=== PATIENT | male | born 1945 | race Caucasian/White ===

== ENCOUNTER → 2016-08-08 | Outpatient (CLI) | payer MEDICARE ==
--- NOTE | 2016-08-08 17:01 | RADIOLOGY REPORT (SQ) ---
EXAM DESCRIPTION: LUMBAR SPINE COMPLETE COMPLETED DATE/TIME: 08/08/2016 3:58 pm REASON FOR STUDY: DORSALGIA, UNSPECIFIED M54.9 DORSALGIA, UNSPECIFIED COMPARISON: None. NUMBER OF VIEWS: Five views including obliques. TECHNIQUE: AP, lateral, oblique, and sacral radiographic images acquired of the lumbar spine. LIMITATIONS: None. FINDINGS: MINERALIZATION: Normal. SEGMENTATION: Normal. No transitional anatomy. ALIGNMENT: There is grade 1 anterolisthesis of L5 on S1. A large bridging osteophyte is present ante riorly. VERTEBRAE: Maintained height. No fracture or worrisome bone lesion. DISCS: The L5-S1 disc space is narrowed. POSTERIOR ELEMENTS: Pars defects are present at L5. Hypertrophic facet changes are present at L4-5 a nd L5-S1. HARDWARE: None in the spine. PARASPINAL SOFT TISSUES: Normal. PELVIS: Intact as visualized. No fractures or worrisome bone lesions. SI joints intact. OTHER: No other significant finding. IMPRESSION: 1. Spondylolisthesis and spondylolysis of L5 on S1. 2. Degenerative disc changes, spondylosis, and facet arthropathy as described. TECHNICAL DOCUMENTATION: JOB ID: [id number] [employer]- All Rights Reserved
--- NOTE | 2016-08-08 17:09 | RADIOLOGY REPORT (SQ) ---
EXAM DESCRIPTION: PELVIS AP COMPLETED DATE/TIME: 08/08/2016 3:58 pm REASON FOR STUDY: DORSALGIA, UNSPECIFIED M54.9 DORSALGIA, UNSPECIFIED COMPARISON: None. NUMBER OF VIEWS: One view TECHNIQUE: AP Pelvis LIMITATIONS: None. FINDINGS: MINERALIZATION: Osteopenic HIPS: No acute fracture or dislocation. No worrisome bone lesions. PELVIS AND SACRUM: No acute fracture or dislocation. No worrisome bone lesions. PUBIS AND ISCHIUM: No acute fracture. LOWER LUMBAR SPINE: Posterior element sclerosis at L5-S1. Bilateral spondylolysis at L5 on today's l umbar spine films. SOFT TISSUES: No findings. OTHER: No other significant finding. IMPRESSION: NEGATIVE STUDY OF THE PELVIS. TECHNICAL DOCUMENTATION: JOB ID: [id number] [employer]- All Rights Reserved
== END ==
LOC: OD 15:17
PROVIDERS: ATTEND Internal Medicine Medical Oncology
DX: M54.9 Dorsalgia, unspecified (principal)
CPT/HCPCS: 72110; 72170

== ENCOUNTER 2017-01-16 13:24 | Inpatient (IN) | payer MEDICARE ==
--- NOTE | 2017-01-16 13:46 | ER Document Report ---
ED Medical Screen (RME) - General Chief Complaint: Slurred Speech Stated Complaint: SLURRED SPEECH Time Seen by Provider: 01/16/17 13:43 Notes: Patient states that yesterday became upset with the grandchildren and he began having trouble speaking. This continued till today. Patient went size primary care provider today who referred him to the emergency department. Patient is obviously still having trouble making sentences in triage. Patient has had 3 previous stroke. He has a heart mechanical valve. TRAVEL OUTSIDE OF THE [place] IN LAST 30 DAYS: No - Related Data Allergies/Adverse Reactions: Penicillins Allergy (Verified 01/16/17 13:25) Past Medical History - Social History Frequency of alcohol use: None Drug Abuse: None Renal/ Medical History: Denies: Hx Peritoneal Dialysis Physical Exam - Vital signs Vitals: Temp Pulse Resp BP Pulse Ox 97.9 F 68 17 139/69 H 99 01/16/17 13:31 01/16/17 13:31 01/16/17 13:31 01/16/17 13:31 01/16/17 13:31 Course - Vital Signs Vital signs: Temp Pulse Resp BP Pulse Ox 97.9 F 68 17 139/69 H 99 01/16/17 13:31 01/16/17 13:31 01/16/17 13:31 01/16/17 13:31 01/16/17 13:31
--- NOTE | 2017-01-16 14:12 | ER Document Report ---
ED General - General Chief Complaint: Slurred Speech Stated Complaint: SLURRED SPEECH Time Seen by Provider: 01/16/17 13:43 Information source: Patient, Transfer Record, [facility] Records TRAVEL OUTSIDE OF THE [place] IN LAST 30 DAYS: No - HPI Patient complains to provider of: "I think I am having a TIA". "I can't find my words" Onset: Yesterday - at noon. Has improved. Onset/Duration: Gradual Quality of pain: No pain Associated symptoms: None Exacerbated by: Denies Relieved by: Denies Similar symptoms previously: Yes Recently seen / treated by doctor: No - Related Data Allergies/Adverse Reactions: Penicillins Allergy (Verified 01/16/17 13:25) Past Medical History - General Information source: Patient - Social History Smoking Status: Current Every Day Smoker Cigarette use (# per day): Yes Chew tobacco use (# tins/day): Yes Smoking Education Provided: Yes Frequency of alcohol use: None Drug Abuse: None Lives with: Family Family History: Hypertension Patient has suicidal ideation: No Patient has homicidal ideation: No - Past Medical History Cardiac Medical History: Reports: Hx Coronary Artery Disease EENT Medical History: Reports: None Neurological Medical History: Reports: Hx Cerebrovascular Accident Endocrine Medical History: Reports: Hx Diabetes Mellitus Type 2 Renal/ Medical History: Reports: None. Denies: Hx Peritoneal Dialysis Malignancy Medical History: Reports None GI Medical History: Reports: None Musculoskeltal Medical History: Reports None Skin Medical History: Reports None Psychiatric Medical History: Reports: None Traumatic Medical History: Reports: None Past Surgical History: Reports: Hx Coronary Artery Bypass Graft Review of Systems - Review of Systems Constitutional: No symptoms reported EENT: No symptoms reported Cardiovascular: No symptoms reported Respiratory: No symptoms reported Gastrointestinal: No symptoms reported Genitourinary: No symptoms reported Musculoskeletal: No symptoms reported Skin: No symptoms reported Hematologic/Lymphatic: No symptoms reported Neurological/Psychological: See HPI Physical Exam - Vital signs Vitals: Temp Pulse Resp BP Pulse Ox 97.9 F 68 17 139/69 H 99 01/16/17 13:31 01/16/17 13:31 01/16/17 13:31 01/16/17 13:31 01/16/17 13:31 Interpretation: Normal - Notes Notes: PHYSICAL EXAMINATION: GENERAL: Well-appearing, well-nourished and in no acute distress. HEAD: Atraumatic, normocephalic. EYES: Pupils equal round and reactive to light, extraocular movements intact, sclera anicteric, conjunctiva are normal. ENT: Nares patent, oropharynx clear without exudates. Moist mucous membranes. NECK: Normal range of motion, supple without lymphadenopathy LUNGS: Breath sounds clear to auscultation bilaterally and equal. No wheezes rales or rhonchi. HEART: Regular rate and rhythm without murmurs ABDOMEN: Soft, nontender, nondistended abdomen. No guarding, no rebound. No masses appreciated. Musculoskeletal: Normal range of motion, no pitting or edema. No cyanosis. NEUROLOGICAL: Cranial nerves grossly intact. Patient has slow speech, without slurring. Normal sensory, motor exams PSYCH: Normal mood, normal affect. SKIN: Warm, Dry, normal turgor, no rashes or lesions noted. Course - Re-evaluation Re-evalutation: 01/16/17 16:22 Reevaluated the patient 3 times while in the emergency department. His symptoms have remained mild and stable. I did talk to the patient's family including his daughter who he lives with. She states that the patient's INR has been difficult to keep therapeutic. She states that the doctors keep adjusting it. Currently the patient is on 5 mg 5 days weekly and then 2-1/2 mg the other 2 days. Patient's last INR was done 1 month ago. In light of the fact that the patient has a [place] Conor valve, multiple CVAs, current TIA symptoms and a subtherapeutic INR I think admission would be in the patient's best interest. I did call Dr. Kellogg and I was instructed to call Dr. Parry which I did he accepted admission. She will be given Lovenox 1 mg/kg as well as 5 mg Coumadin. 01/16/17 16:30 Patient also states he has a history of atrial fibrillation. I did inform him and his family of the admission. He agreed. Dr. Haynes is in the room talking to the family and the patient now - Vital Signs Vital signs: Temp Pulse Resp BP Pulse Ox 97.9 F 68 16 119/72 96 01/16/17 13:31 01/16/17 13:48 01/16/17 14:31 01/16/17 14:31 01/16/17 14:31 - Laboratory Result Diagrams: 01/16/17 14:20 01/16/17 14:20 Laboratory results interpreted by me: 01/16/17 01/16/17 01/16/17 14:20 14:20 14:20 RBC 3.73 L Hgb 11.9 L Hct 35.4 L RDW 17.9 H Plt Count 144 L Eosinophils % 10.6 H PT 22.0 H APTT 38.7 H Chloride 108 H - Diagnostic Test Radiology reviewed: Image reviewed - See the head without contrast shows no acute CVA, Reports reviewed - EKG Interpretation by Me EKG shows normal: Sinus rhythm Rate: Normal [place]/QRS: RBBB Discharge - Discharge Condition: Good Disposition: ADMITTED INPATIENT Admitting Provider: Hospitalist - Dr. Haynes Unit Admitted: Telemetry Referrals: PERLA MARTINEZ PA-C [Primary Care Provider] - Follow up as needed
--- NOTE | 2017-01-16 14:13 | ER Document Report ---
ED NIH Stroke Scale - NIH Stroke Scale When completed:: Before Alteplase *: 1. NIH scale should be completed with appropriate accompanying assessment tools. *: 2. The NIH should reflect what the patient is capable of doing and should not be coached by the clinician. 1a. Level of Consciousness: 0=Alert;keenly responsive -: 1=Drowsy -: 2=Obtunded -: 3=Coma/unresponsive or reflex to noxious stimuli. 1a. Responses: 0 1b. Orientation Questions: a. What month is it? -: b. How old are you? -: 0=Answers both questions correctly. -: 1=Answers one question correctly or patient is intubated or has orotracheal trauma. -: 2=Answers neither question correctly. 1b. Responses: 0 1c. Response to commands: a. Open and close eyes? -: b. Extension Division Director and release hand? -: Credit is given despite weakness. Demonstration of task is permitted. Substitute command if hands cannot be used. -: 0=Performs both tasks correctly -: 1=Performs one task correctly -: 2=Performs neither task correctly 1c. Responses: 0 2. Gaze: Establish eye contact and instruct patient to "Follow my finger" -: 0=Normal -: 1=Partial gaze palsy. Gaze is abnormal in one or both eyes, but where forced deviation or total gaze paresis is not present. -: 2=Forced deviation or total gaze paresis. 2. Responses: 0 3. Visual Wolfe: Sees fingers in all four quadrants. -: 0=No visual loss. -: 1=Partial hemianopsia. -: 2=Complete hemianopsia. -: 3=Bilateral hemianopsia (including Cortical blindness) 3. Responses: 0 4. Facial Movement: Instruct patient to: -: a. Show me your teeth -: b. Raise your eyebrows -: c. Close your eyes -: d. Smile -: 0=Normal symmetrical movement -: 1=Minor paralysis (flattened nasolabial fold, asymmetry on smiling). -: 2=Partial paralysis (total or near total paralysis of lower face). -: 3=Complete paralysis of upper and lower face 4. Responses: 0 5. Motor functions (left arm): Alternate sides and extend each arm with palms down (90 degrees if sitting or 45 degrees for supine). -: 0=No drift;limb holds for full 10 seconds. -: 1=Drift; limb holds but drifts down before full 10 seconds, but does not hit bed. -: 2=Some effort against gravity; limb cannot get to or maintain position. -: 3=No effort against gravity; limb falls. -: 4=No movement. -: UN=Amputation, joint fusion, explain in comments. 5. Responses (left arm): 0 5. Motor Functions (right arm): Alternate sides and extend each arm with palms down (90 degrees if sitting or 45 degrees for supine). -: 0=No drift;limb holds for full 10 seconds. -: 1=Drift; limb holds but drifts down before full 10 seconds, but does not hit bed. -: 2=Some effort against gravity; limb cannot get to or maintain position. -: 3=No effort against gravity; limb falls. -: 4=No movement. -: UN=Amputation, joint fusion, explain in comments. 5. Responses (right arm): 0 6. Motor Functions (left leg): With patient lying supine, alternate sides and extend each leg (30 degrees always while supine). -: 0=No drift, leg holds position for full 5 seconds -: 1=Drift; leg falls before full 5 seconds but does not hit bed. -: 2=Some effort against gravity, leg falls to bed but some effort against gravity. -: 3=No effort against gravity, leg falls to bed immediately. -: 4=No movement. -: UN=Amputation, joint fusion; explain in comments. 6. Responses (left leg): 0 6. Motor Functions (right leg): With patient lying supine, alternate sides and extend each leg (30 degrees always while supine). -: 0=No drift, leg holds position for full 5 seconds -: 1=Drift; leg falls before full 5 seconds but does not hit bed. -: 2=Some effort against gravity, leg falls to bed but some effort against gravity. -: 3=No effort against gravity, leg falls to bed immediately. -: 4=No movement. -: UN=Amputation, joint fusion; explain in comments. 6. Responses (right leg): 0 7. Limb Ataxia: With eyes open instruct patient to: -: a. "Touch your finger to your nose". -: b. "Touch your heel to your gonzalez" -: 0=Absent -: 1=Present in one limb. -: 2=Present in two limbs. -: UN=Amputation or joint fusion; explain in comments. 7. Responses: 0 8. Sensory: Test sensation using pinprick or noxious stimuli. Test as many body parts as possible. -: 0=Normal;no sensory loss -: 1=Mile to moderate sensory loss (patient feels pin prick but is less sharp on affected side). -: 2=Severe or total sensory loss. 8. Responses: 0 9. Best Language: Instruct patient to: -: a. "Describe what you see in this picture." -: b. "Name the items in this picture." -: c. "Read these sentences." -: 0=No aphasia, normal -: 1=Mild to moderate aphasia. -: 2=Severe aphasia -: 3=Mute, global aphasia, no usable speech or auditory comprehension. 9. Responses: 0 10. Articulation, Dysarthia: Instruct patient to: -: "Read these words" or "Repeat these words" -: 0=Normal -: 1=Mild to moderate; patient may slur some words but can be understood without difficulty. -: 2=Severe; patients speech so slurred as to be unintelligible in the absence of dysphasia. -: UN=Intubated or other physical barrier, explain in comments. 10. Responses: 0 11. Extinction or inattention: 0=No abnormality -: 1= Visual, tactile, auditory, spatial, or personal inattention or extinction to bilateral simulation in one or the sensory modalities. -: 2=Profound jack-inattention or jack-inattention to more than one modality; does not recognize own hand. 11. Responses: 0 Total Score: 0 Notes: Patient states that he was having difficulty getting the right words to come out. During my examination he had slowed speech but the correct words were stated. He even stated "see down doing much better". 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
--- NOTE | 2017-01-16 14:17 | RADIOLOGY REPORT (SQ) ---
EXAM DESCRIPTION: CHEST SINGLE VIEW COMPLETED DATE/TIME: 01/16/2017 1:53 pm REASON FOR STUDY: trouble speaking COMPARISON: None. NUMBER OF VIEWS: One view. TECHNIQUE: Single frontal radiographic view of the chest acquired. LIMITATIONS: None. FINDINGS: LUNGS AND PLEURA: No opacities, masses or pneumothorax. No pleural effusion. MEDIASTINUM AND HILAR STRUCTURES: No masses. Contour normal. HEART AND VASCULAR STRUCTURES: Heart enlarged without failure. Normal vasculature. BONES: No acute findings. HARDWARE: CABG. OTHER: No other significant finding. IMPRESSION: Cardiomegaly. No acute findings. TECHNICAL DOCUMENTATION: JOB ID: [id number] [employer]- All Rights Reserved
--- NOTE | 2017-01-16 14:22 | RADIOLOGY REPORT (SQ) ---
EXAM DESCRIPTION: CT HEAD WITHOUT COMPLETED DATE/TIME: 01/16/2017 2:10 pm REASON FOR STUDY: trouble speaking COMPARISON: None. TECHNIQUE: Axial images acquired through the brain without intravenous contrast. Images reviewed wi th bone, brain and subdural windows. Images stored on PACS. All CT scanners at this facility use dose modulation, iterative reconstruction, and/or weight based d osing when appropriate to reduce radiation dose to as low as reasonably achievable (ALARA). [facility]: Dose Right [facility]: CareDose [facility]: Dose Right [facility]: Teradose 4D [facility]: Smart SecureDB RADIATION DOSE: mGy. LIMITATIONS: None. FINDINGS: VENTRICLES: Prominent. CEREBRUM: No masses. No hemorrhage. No midline shift. Old watershed infarct left MCA territory. A reas of low density in the white matter most likely due to chronic micro-vascular ischemic change. N o evidence for acute infarction. CEREBELLUM: No masses. No hemorrhage. No alteration of density. No evidence for acute infarction. EXTRAAXIAL SPACES: Age-related involutional change. No fluid collections. No masses. ORBITS AND GLOBE: No intra- or extraconal masses. Normal contour of globe without masses. CALVARIUM: No fracture. PARANASAL SINUSES: No fluid or mucosal thickening. SOFT TISSUES: No mass or hematoma. OTHER: No other significant finding. IMPRESSION: Chronic ischemic changes. EVIDENCE OF ACUTE STROKE: NO. TECHNICAL DOCUMENTATION: JOB ID: [id number] Quality ID # [id number]: Final reports with documentation of one or more dose reduction techniques (e.g., Au tomated exposure control, adjustment of the mA and/or kV according to patient size, use of iterative reconstruction technique) 2010 [employer]- All Rights Reserved
[2017-01-16 14:43] LABS: ABSOLUTE BASOPHILS # (AUTO) 0.1 10^3/uL (0.0-0.2); ABSOLUTE EOSINOPHILS # (AUTO) 0.6 10^3/uL (0.0-0.6); ABSOLUTE LYMPHOCYTES (AUTO) 1.6 10^3/uL (0.5-4.7); ABSOLUTE MONOCYTES (AUTO) 0.5 10^3/uL (0.1-1.4); ABSOLUTE NEUT (AUTO) 3.3 10^3/uL (1.7-8.2); BASOPHILS % (AUTO) 1.1 % (0-2); EOSINOPHILS % (AUTO) 10.6 % (0-6); HEMATOCRIT 35.4 % (37.9-51.0); HEMOGLOBIN 11.9 g/dL (13.5-17.0); HGB HCT DIFFERENCE 0.3; LYMPHOCYTES % (AUTO) 26.2 % (13-45); MEAN CORPUSCULAR HGB CONC 33.7 g/dL (32.0-36.0); MEAN CORPUSCULAR VOLUME 95 fl (80-97); MONOCYTES % (AUTO) 7.9 % (3-13); PARTIAL THROMBOPLASTIN TIME 38.7 SEC (23.5-35.8); RED BLOOD COUNT 3.73 10^6/uL (4.35-5.55); RED CELL DISTRIBUTION WIDTH 17.9 % (11.5-14.0); SEGMENTED NEUTROPHILS % (AUTO) 54.2 % (42-78)
[2017-01-16 15:04] LABS: ALANINE AMINOTRANSFERASE 34 U/L (21-72); ALBUMIN 3.8 g/dL (3.5-5.0); ALKALINE PHOSPHATASE 105 U/L (38-126); ANION GAP 7 (5-19); ASPARTATE AMINO TRANSFERASE 25 U/L (17-59); BILIRUBIN,DIRECT 0.3 mg/dL (0.0-0.4); BILIRUBIN,TOTAL 0.4 mg/dL (0.2-1.3); BLOOD UREA NITROGEN 19 mg/dL (7-20); CALCIUM 9.1 mg/dL (8.4-10.2); CARBON DIOXIDE 29 mmol/L (22-30); CHLORIDE 108 mmol/L (98-107); CREATININE RESULT 1.02 mg/dL (0.52-1.25); GLUCOSE 100 mg/dL (75-110); POTASSIUM 4.4 mmol/L (3.6-5.0); SODIUM 144.4 mmol/L (137-145); TOTAL PROTEIN 6.7 g/dL (6.3-8.2)
[2017-01-16] MEDS ORDERED: WARFARIN SODIUM 5 MG TABLET PO STA (16:17)
[2017-01-16] MEDS ORDERED: ENOXAPARIN SODIUM INJ 100 MG/1 ML DISP.SYRIN SUBCUT ONE (16:18)
[2017-01-16] MEDS ORDERED: RINGERS SOLUTION,LACTATED 1,000 ML IV PRN (16:57)
[2017-01-16] MEDS ORDERED: ONDANSETRON HCL INJ/PF 4 MG/2 ML SDV IV PRN (16:57)
--- NOTE | 2017-01-16 17:37 | PDOC H&P ---
History of Present Illness Admission Date/PCP: 01/26/2017 PERLA MARTINEZ PA-C Patient complains of: Difficulty Speaking History of Present Illness: MIKA NGUYEN is a 71 year old male presents with compliant of difficulty speaking. Pt and family states that symptom of difficulty speaking started yesterday. Family states that symptoms appeared to improve. Daughter states that today his speech worsened and pt was directed to the ER. Pt was very agitated about being admitted. Pt states that today he feels a little weak. Pt states that normally he feels very strong. ER reported that pt INR 1.[address] of head negative. Pt has a [place] Conor valve and Atrial Fibrillation. Past Medical History Cardiac Medical History: Reports: Coronary Artery Disease, Hyperlipidema, Hypertension EENT Medical History: Reports: None Endocrine Medical History: Reports: Diabetes Mellitus Type 2 Renal/ Medical History: Reports: None Malignancy Medical History: Reports: None GI Medical History: Reports: None Musculoskeltal Medical History: Reports: None Skin Medical History: Reports: None Psychiatric Medical History: Reports: None Traumatic Medical History: Reports: None Past Surgical History Past Surgical History: Reports: Appendectomy, Cholecystectomy, Coronary Artery Bypass Graft Social History Lives with: Family Smoking Status: Current Every Day Smoker Family History Family History: Hypertension Parental Family History Reviewed: Yes Children Family History Reviewed: Yes Sibling(s) Family History Reviewed.: Yes Medication/Allergy Allergies/Adverse Reactions: Penicillins Allergy (Verified 01/16/17 13:25) Review of Systems Constitutional: PRESENT: weakness. ABSENT: chills, fever(s), headache(s), weight gain, weight loss Eyes: ABSENT: visual disturbances Ears: ABSENT: hearing changes Cardiovascular: ABSENT: chest pain, dyspnea on exertion, edema, orthropnea, palpitations Respiratory: ABSENT: cough, hemoptysis Gastrointestinal: ABSENT: abdominal pain, constipation, diarrhea, hematemesis, hematochezia, nausea, vomiting Genitourinary: ABSENT: dysuria, hematuria Musculoskeletal: ABSENT: joint swelling Integumentary: ABSENT: rash, wounds Neurological: PRESENT: abnormal speech, weakness Psychiatric: PRESENT: anxiety Endocrine: ABSENT: cold intolerance, heat intolerance, polydipsia, polyuria Hematologic/Lymphatic: ABSENT: easy bleeding, easy bruising Physical Exam Vital Signs: Temp Pulse Resp BP Pulse Ox 97.9 F 68 19 150/95 H 99 01/16/17 13:31 12/04/17 13:48 01/16/17 16:31 01/16/17 16:31 01/16/17 16:31 Intake & Output 01/15/17 01/16/17 01/17/17 06:59 06:59 06:59 Weight 92.3 kg General appearance: PRESENT: no acute distress, morbidly obese, well-developed, well-nourished Head exam: PRESENT: atraumatic, normocephalic Eye exam: PRESENT: conjunctiva pink, EOMI, PERRLA. ABSENT: scleral icterus Ear exam: PRESENT: normal external ear exam Mouth exam: PRESENT: moist, other - Tongue slightly deviated to right Neck exam: ABSENT: carotid bruit, JVD, lymphadenopathy, thyromegaly Respiratory exam: PRESENT: clear to auscultation irineo. ABSENT: rales, rhonchi, wheezes Cardiovascular exam: PRESENT: irregular rhythm, other - mechanical click Pulses: PRESENT: normal dorsalis pedis pul Vascular exam: PRESENT: normal capillary refill GI/Abdominal exam: PRESENT: normal bowel sounds, soft. ABSENT: distended, guarding, mass, organolmegaly, rebound, tenderness Rectal exam: PRESENT: deferred Extremities exam: PRESENT: full ROM. ABSENT: calf tenderness, clubbing, pedal edema Musculoskeletal exam: PRESENT: full ROM Neurological exam: PRESENT: alert, awake, oriented to person, oriented to place , oriented to time, oriented to situation, other - difficulty with speech. ABSENT: motor sensory deficit Psychiatric exam: PRESENT: agitated Skin exam: PRESENT: abrasion Results Laboratory Results: 01/16/17 14:20 01/16/17 14:20 01/16/17 01/16/17 14:20 14:20 WBC 6.0 RBC 3.73 L Hgb 11.9 L Hct 35.4 L MCV 95 MCH 32.0 MCHC 33.7 RDW 17.9 H Plt Count 144 L Seg Neutrophils % 54.2 Lymphocytes % 26.2 Monocytes % 7.9 Eosinophils % 10.6 H Basophils % 1.1 Absolute Neutrophils 3.3 Absolute Lymphocytes 1.6 Absolute Monocytes 0.5 Absolute Eosinophils 0.6 Absolute Basophils 0.1 Sodium 144.4 Potassium 4.4 Chloride 108 H Carbon Dioxide 29 Anion Gap 7 BUN 19 Creatinine 1.02 Est GFR ( Amer) > 60 Est GFR (Non-Af Amer) > 60 Glucose 100 Calcium 9.1 Total Bilirubin 0.4 AST 25 ALT 34 Alkaline Phosphatase 105 Total Protein 6.7 Albumin 3.8 01/16/17 14:20 Troponin I 0.019 Impressions: Chest X-Ray 01/16/17 13:44 IMPRESSION: Cardiomegaly. No acute findings. Head CT 01/16/17 13:44 IMPRESSION: Chronic ischemic changes. EVIDENCE OF ACUTE STROKE: NO. Assessment & Plan - Diagnosis (1) TIA (transient ischemic attack) Is this a current diagnosis for this admission?: Yes Plan: Secondary to Subtherapeutic INR with [place] Conor Valve and Atrial Fibrillation: Will place on Lovenox wt based and increase Coumadin. Goal for INR is 2.5 to 3.5. Aspirin. (2) CVA (cerebral vascular accident) Is this a current diagnosis for this admission?: Yes Plan: Concern for CVA with aphasia in setting of Subtherapeutic INR: Will place on Lovenox and increase dose of coumadin. Recommend repeat CT of head in 48 hours to see if evidence of CVA present. (3) Subtherapeutic international normalized ratio (INR) Is this a current diagnosis for this admission?: Yes Plan: INR 1.8. Will place pt on Lovenox and coumadin. Goal for INR is 2.5 to 3.5. (4) Atrial fibrillation Qualifiers: Atrial fibrillation type: chronic Qualified Code(s): I48.2 - Chronic atrial fibrillation Is this a current diagnosis for this admission?: Yes Plan: Will continue pt home medications. (5) [place] Conor Valve Is this a current diagnosis for this admission?: Yes Plan: Goal of INR is 2.[address] on Lovenox and coumadin. (6) Hypertension Qualifiers: Hypertension type: essential hypertension Qualified Code(s): I10 - Essential (primary) hypertension Is this a current diagnosis for this admission?: Yes Plan: Will continue home medications. (7) CAD (coronary artery disease) Qualifiers: Coronary Disease-Associated Artery/Lesion type: bypass graft Is this a current diagnosis for this admission?: Yes Plan: with CABG: Will continue home meds once pharmacy reconciled. Will check troponins (8) Tobacco dependence Is this a current diagnosis for this admission?: Yes Plan: Nicotine patches. (9) DVT prophylaxis Is this a current diagnosis for this admission?: Yes Plan: Lovenox. - Time Time Spent: 30 to 50 Minutes
[2017-01-16] MEDS ORDERED: SIMVASTATIN 40 MG TABLET PO ONE (19:00)
[2017-01-16] MEDS ORDERED: ASPIRIN 325 MG TABLET PO ONE (19:00)
[2017-01-16] MEDS ORDERED: NICOTINE 7 MG/24 HR PATCH.TD24 TD ONE (19:00)
[2017-01-16] MEDS: ENOXAPARIN SODIUM INJ 100 MG/1 ML DISP.SYRIN SUBCUT SCH (19:13)
[2017-01-16] MEDS ORDERED: INFLUENZA ADLT QUAD (36MOS+) 2017-18 VAC 0.5 ML SYR IM PRN (20:33)
--- NOTE | 2017-01-16 20:46 | EKG REPORT ---
SEVERITY:- ABNORMAL ECG - ATRIAL FIBRILLATION RIGHT BUNDLE BRANCH BLOCK : Confirmed by: Yuko Stack 16-Jan-2017 20:45:33
[2017-01-17] MEDS: ENOXAPARIN SODIUM INJ 100 MG/1 ML DISP.SYRIN SUBCUT SCH ×2 (06:15→18:12)
[2017-01-17 07:31] LABS: ABSOLUTE BASOPHILS # (AUTO) 0.1 10^3/uL (0.0-0.2); ABSOLUTE EOSINOPHILS # (AUTO) 0.5 10^3/uL (0.0-0.6); ABSOLUTE MONOCYTES (AUTO) 0.3 10^3/uL (0.1-1.4); ABSOLUTE NEUT (AUTO) 3.3 10^3/uL (1.7-8.2); BASOPHILS % (AUTO) 1.3 % (0-2); EOSINOPHILS % (AUTO) 9.9 % (0-6); HEMOGLOBIN 12.3 g/dL (13.5-17.0); HGB HCT DIFFERENCE 0.9; LYMPHOCYTES % (AUTO) 19.6 % (13-45); MEAN CORPUSCULAR HEMOGLOBIN 32.3 pg (27.0-33.4); MEAN CORPUSCULAR VOLUME 95 fl (80-97); MONOCYTES % (AUTO) 5.7 % (3-13); RED BLOOD COUNT 3.79 10^6/uL (4.35-5.55); RED CELL DISTRIBUTION WIDTH 17.3 % (11.5-14.0); SEGMENTED NEUTROPHILS % (AUTO) 63.5 % (42-78); WHITE BLOOD COUNT 5.3 10^3/uL (4.0-10.5)
[2017-01-17 07:33] LABS: PROTHROMBIN TIME 23.4 SEC (11.4-15.4)
[2017-01-17 07:43] LABS: BLOOD UREA NITROGEN 15 mg/dL (7-20); CALCIUM 9.1 mg/dL (8.4-10.2); CREATININE RESULT 1.04 mg/dL (0.52-1.25); GLUCOSE 122 mg/dL (75-110)
[2017-01-17 07:44] LABS: ALANINE AMINOTRANSFERASE 36 U/L (21-72); ALBUMIN 3.6 g/dL (3.5-5.0); ALKALINE PHOSPHATASE 98 U/L (38-126); ANION GAP 9 (5-19); ASPARTATE AMINO TRANSFERASE 23 U/L (17-59); BILIRUBIN,DIRECT 0.3 mg/dL (0.0-0.4); BILIRUBIN,TOTAL 0.5 mg/dL (0.2-1.3); CARBON DIOXIDE 29 mmol/L (22-30); CHLORIDE 109 mmol/L (98-107); Direct HDL 34 mg/dL (>40); SODIUM 146.6 mmol/L (137-145); TOTAL PROTEIN 6.2 g/dL (6.3-8.2); TRIGLYCERIDES 83 mg/dL (<150)
[2017-01-17 07:54] LABS: DIRECT LDL 101 mg/dL (<100)
[2017-01-17 08:10] LABS: THYROID STIMULATING HORMONE 0.82 uIU/mL (0.47-4.68)
[2017-01-17] MEDS: ASPIRIN 81 MG TABLET, CHEWABLE PO SCH (10:18)
[2017-01-17 10:22] LABS: APPEARANCE,URINE CLEAR; BILIRUBIN,URINE NEGATIVE (NEGATIVE); GLUCOSE, URINE NEGATIVE (NEGATIVE); KETONES,URINE NEGATIVE (NEGATIVE); LEUKOCYTE ESTERASE,URINE NEGATIVE (NEGATIVE); NITRITE,URINE NEGATIVE (NEGATIVE); PROTEIN,URINE NEGATIVE (NEGATIVE); URINE SPECIFIC GRAVITY 1.006; UROBILINOGEN,URINE NEGATIVE mg/dL (<2.0)
[2017-01-17] MEDS ORDERED: LORAZEPAM INJ 2 MG/1 ML VIAL IV ONE (10:30)
[2017-01-17 10:44] LABS: BACTERIA,URINE TRACE /HPF; RBC,URINE 0-1 /HPF
[2017-01-17] MEDS: HYDRALAZINE HCL INJ/PF 20 MG/1 ML SDV IV PRN ×2 (11:30→20:21)
[2017-01-17] MEDS: LORAZEPAM 0.5 MG TABLET PO PRN ×2 (12:37→20:22)
--- NOTE | 2017-01-17 13:28 | RADIOLOGY REPORT (SQ) ---
EXAM DESCRIPTION: CAROTID DOPPLER COMPLETED DATE/TIME: 01/17/2017 11:49 am REASON FOR STUDY: TIA vs CVA COMPARISON: None. TECHNIQUE: Grayscale ultrasound, Doppler velocity and spectra, and color Doppler images acquired of the extra-cranial carotid and vertebral arteries. Images stored on PACS. LIMITATIONS: None. FINDINGS: RIGHT CAROTID CCA Velocities: Within normal limits. ICA Velocities Peak systolic 0.73 m/s. End diastolic 0.18 m/s. Proximal ICA/CCA peak systolic ratio 1.3. Spectra normal. No significant plaque. LEFT CAROTID CCA Velocities: Within normal limits. ICA Velocities Peak systolic 0.84 m/s. End diastolic 0.2 m/s. Proximal ICA/CCA peak systolic ratio 1.7. Spectra normal. No significant plaque. VERTEBRAL ARTERIES: Antegrade flow. Normal waveforms. SUBCLAVIAN ARTERIES: No finding. OTHER: No other significant finding. IMPRESSION: NO HEMODYNAMICALLY SIGNIFICANT STENOSIS. COMMENT: Quality ID #[id number]: Velocity criteria are extrapolated from the diameter data as defined by t he Society of Radiologists in Ultrasound Consensus Conference. Radiology 2003: 229; 340-346. TECHNICAL DOCUMENTATION: JOB ID: [id number] [employer]- All Rights Reserved
[2017-01-17] MEDS: ACETAMINOPHEN 325 MG TABLET PO PRN ×2 (16:12→23:49)
--- NOTE | 2017-01-17 19:22 | PDOC PROGRESS REPORT ---
Subjective Progress Note for:: 01/17/17 Subjective:: The patient is a little agitated this morning. He states that he is ready to be discharged from the hospital. I explained to him that his INR was still subtherapeutic and he needed to be bridged. We also need to repeat his CT scan to confirm a CVA as he cannot have an MRI. He does voice understanding. Later the patient's daughter requested transfer to [facility] in [place] because he was being held in the emergency room. I have assured them that hopefully he will get a bed soon. I did try to transfer the patient to [place] however there hospital is full and the hospitalist did not want to take a lateral transfer. Overall the patient continues to have aphasia. He has difficulty finding his words and he finds this quite frustrating. Otherwise he denies fever chills. No chest pain, shortness of breath or heart palpitations. No nausea, vomiting or diarrhea. No dysuria, frequency or hematuria. Reason For Visit: TIA,CONCERN FOR CVA,SUBTHERAPEUTIC INR Physical Exam Vital Signs: Temp Pulse Resp BP Pulse Ox 97.8 F 91 18 172/96 H 97 01/17/17 16:16 01/17/17 15:56 01/17/17 16:16 01/17/17 16:36 01/17/17 16:16 Intake & Output 01/16/17 01/17/17 01/18/17 06:59 06:59 06:59 Intake Total 90 Balance 90 Weight 89.2 kg General appearance: PRESENT: no acute distress, well-developed, well-nourished Head exam: PRESENT: atraumatic, normocephalic Eye exam: PRESENT: conjunctiva pink, EOMI, PERRLA. ABSENT: scleral icterus Ear exam: PRESENT: normal external ear exam Mouth exam: PRESENT: moist, tongue midline Neck exam: ABSENT: carotid bruit, JVD, lymphadenopathy, thyromegaly Respiratory exam: PRESENT: clear to auscultation irineo. ABSENT: rales, rhonchi, wheezes Cardiovascular exam: PRESENT: clicks, irregular rhythm Pulses: PRESENT: normal dorsalis pedis pul Vascular exam: PRESENT: normal capillary refill GI/Abdominal exam: PRESENT: normal bowel sounds, soft. ABSENT: distended, guarding, mass, organolmegaly, rebound, tenderness Rectal exam: PRESENT: deferred Extremities exam: PRESENT: full ROM. ABSENT: calf tenderness, clubbing, pedal edema Musculoskeletal exam: PRESENT: ambulatory Neurological exam: PRESENT: alert, awake, oriented to person, oriented to time, oriented to situation, normal gait, aphasic. ABSENT: altered, motor sensory deficit Psychiatric exam: PRESENT: agitated, anxious Skin exam: PRESENT: dry, intact, warm. ABSENT: cyanosis, rash Results Laboratory Results: 01/17/17 07:00 01/17/17 07:00 01/17/17 01/17/17 01/17/17 07:00 07:00 07:00 WBC 5.3 RBC 3.79 L Hgb 12.3 L Hct 36.0 L MCV 95 MCH 32.3 MCHC 34.0 RDW 17.3 H Plt Count 141 L Seg Neutrophils % 63.5 Lymphocytes % 19.6 Monocytes % 5.7 Eosinophils % 9.9 H Basophils % 1.3 Absolute Neutrophils 3.3 Absolute Lymphocytes 1.0 Absolute Monocytes 0.3 Absolute Eosinophils 0.5 Absolute Basophils 0.1 Sodium 146.6 H Potassium 5.0 Chloride 109 H Carbon Dioxide 29 Anion Gap 9 BUN 15 Creatinine 1.04 Est GFR ( Amer) > 60 Est GFR (Non-Af Amer) > 60 Glucose 122 H Calcium 9.1 Total Bilirubin 0.5 AST 23 ALT 36 Alkaline Phosphatase 98 Total Protein 6.2 L Albumin 3.6 Triglycerides 83 Cholesterol 149.50 LDL Cholesterol Direct 101 H VLDL Cholesterol 17.0 HDL Cholesterol 34 L TSH 0.82 Free T4 1.29 Urine Color Urine Appearance Urine pH Ur Specific [place] Urine Protein Urine Glucose (UA) Urine Ketones Urine Blood Urine Nitrite Ur Leukocyte Esterase 01/17/17 09:52 WBC RBC Hgb Hct MCV MCH MCHC RDW Plt Count Seg Neutrophils % Lymphocytes % Monocytes % Eosinophils % Basophils % Absolute Neutrophils Absolute Lymphocytes Absolute Monocytes Absolute Eosinophils Absolute Basophils Sodium Potassium Chloride Carbon Dioxide Anion Gap BUN Creatinine Est GFR ( Amer) Est GFR (Non-Af Amer) Glucose Calcium Total Bilirubin AST ALT Alkaline Phosphatase Total Protein Albumin Triglycerides Cholesterol LDL Cholesterol Direct VLDL Cholesterol HDL Cholesterol TSH Free T4 Urine Color STRAW Urine Appearance CLEAR Urine pH 8.0 Ur Specific [place] 1.006 Urine Protein NEGATIVE Urine Glucose (UA) NEGATIVE Urine Ketones NEGATIVE Urine Blood SMALL H Urine Nitrite NEGATIVE Ur Leukocyte Esterase NEGATIVE 01/16/17 01/17/17 01/17/17 20:26 02:14 07:00 Troponin I 0.027 0.023 0.023 Impressions: Chest X-Ray 01/16/17 13:44 IMPRESSION: Cardiomegaly. No acute findings. Head CT 01/16/17 13:44 IMPRESSION: Chronic ischemic changes. EVIDENCE OF ACUTE STROKE: NO. Carotid Doppler Study 01/17/17 09:00 IMPRESSION: NO HEMODYNAMICALLY SIGNIFICANT STENOSIS. Assessment & Plan - Diagnosis (1) CVA (cerebral vascular accident) Is this a current diagnosis for this admission?: Yes Plan: Initial CT scan was negative. Clinically on exam the patient appears to have had an acute CVA due to his persistent aphasia. He is having difficulty finding his words. His INR was subtherapeutic and he does have a [employer]'s mechanical valve. This was likely an embolic phenomenon. 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 He thinks it will be fine for now. We will continue Lovenox.rning. He is on a Lovenox bridge. I did speak to my attending physician Dr. Paulson. He feels as if a Lovenox bridge is fine we do not need to place the patient on heparin at this point. (2) Subtherapeutic international normalized ratio (INR) Is this a current diagnosis for this admission?: Yes Plan: Continue Coumadin and a Lovenox bridge. (3) [facility] [employer] Valve Is this a current diagnosis for this admission?: Yes Plan: His INR was subtherapeutic. (4) Atrial fibrillation Qualifiers: Atrial fibrillation type: chronic Qualified Code(s): I48.2 - Chronic atrial fibrillation Is this a current diagnosis for this admission?: Yes Plan: Continue Coumadin and Lovenox. He is rate controlled at this point. (5) CAD (coronary artery disease) Qualifiers: Coronary Disease-Associated Artery/Lesion type: bypass graft Is this a current diagnosis for this admission?: Yes Plan: Continue home regimen (6) Hypertension Qualifiers: Hypertension type: essential hypertension Qualified Code(s): I10 - Essential (primary) hypertension Is this a current diagnosis for this admission?: Yes Plan: Stable (7) Tobacco dependence Is this a current diagnosis for this admission?: Yes Plan: Certainly would be in his best interest to quit smoking (8) Anemia Plan: Secondary to chronic disease. Stable (9) Hypernatremia Plan: We will check a level in the morning. This is quite mild (10) Anxiety Plan: I started the patient on as needed Ativan as he is quite agitated to still be in the hospital. (11) Urinary frequency Plan: UA was negative at the time of admission. He was bladder scan today and had very small residual - Time Time Spent with patient: 25-34 minutes - Inpatient Certification Medical Necessity: Other - Inpatient hospitalization remains necessary. The patient needs a CT scan to confirm his acute CVA. He is on a Lovenox bridge with a subtherapeutic INR in the setting of a [employer] Con[employer]'s mechanical valve.
[2017-01-17] MEDS ORDERED: FUROSEMIDE INJ/PF 40 MG/4 ML SDV IV ONE (21:03)
[2017-01-17] MEDS ORDERED: ENALAPRILAT DIHYDRATE INJ/PF 2.5 MG/2 ML SDV IV ONE (21:03)
[2017-01-17] MEDS ORDERED: LACTULOSE SYRUP 20 GM/30 ML UDCUP PO ONE (22:54)
[2017-01-17] MEDS ORDERED: TRAZODONE HCL 50 MG TABLET PO ONE (23:00)
[2017-01-17] MEDS: SIMVASTATIN 40 MG TABLET PO SCH (23:48)
[2017-01-17] MEDS: WARFARIN SODIUM 5 MG TABLET PO SCH (23:48)
[2017-01-18] MEDS: DILTIAZEM HCL 60 MG TABLET PO SCH ×5 (01:16→23:43)
[2017-01-18 05:09] LABS: HEMATOCRIT 43.1 % (37.9-51.0); HGB HCT DIFFERENCE 1.6; MEAN CORPUSCULAR HEMOGLOBIN 31.9 pg (27.0-33.4); MEAN CORPUSCULAR HGB CONC 34.5 g/dL (32.0-36.0); MEAN CORPUSCULAR VOLUME 93 fl (80-97); RED BLOOD COUNT 4.66 10^6/uL (4.35-5.55); RED CELL DISTRIBUTION WIDTH 17.2 % (11.5-14.0); WHITE BLOOD COUNT 7.9 10^3/uL (4.0-10.5)
[2017-01-18 05:14] LABS: HEMOGLOBIN 14.9 g/dL (13.5-17.0)
[2017-01-18 05:19] LABS: ANION GAP 17 (5-19); BLOOD UREA NITROGEN 15 mg/dL (7-20); CALCIUM 10.3 mg/dL (8.4-10.2); CARBON DIOXIDE 22 mmol/L (22-30); CHLORIDE 108 mmol/L (98-107); CREATININE RESULT 1.03 mg/dL (0.52-1.25); GLUCOSE 138 mg/dL (75-110); MAGNESIUM 1.5 mg/dL (1.6-2.3); POTASSIUM 4.3 mmol/L (3.6-5.0); SODIUM 147.3 mmol/L (137-145)
[2017-01-18] MEDS: ENOXAPARIN SODIUM INJ 100 MG/1 ML DISP.SYRIN SUBCUT SCH ×2 (06:40→18:46)
[2017-01-18] MEDS ORDERED: NORMAL SALINE 1000 ML 1,000 ML IV PRN (08:02)
--- NOTE | 2017-01-18 09:12 | RADIOLOGY REPORT (SQ) ---
EXAM DESCRIPTION: CT HEAD WITHOUT COMPLETED DATE/TIME: 01/18/2017 8:44 am REASON FOR STUDY: f/u CVA- cannot get a mri COMPARISON: 01/16/2017. TECHNIQUE: Axial images acquired through the brain without intravenous contrast. Images reviewed wi th bone, brain and subdural windows. Images stored on PACS. All CT scanners at this facility use dose modulation, iterative reconstruction, and/or weight based d osing when appropriate to reduce radiation dose to as low as reasonably achievable (ALARA). [facility]: Dose Right [facility]: CareDose [facility]: Dose Right [facility]: Teradose 4D [facility]: Smart zerobound RADIATION DOSE: CT Rad equipment meets quality standard of care and radiation dose reduction techniq ues were employed. CTDIvol: 49.0 mGy. DLP: 783 mGy-cm. mGy. LIMITATIONS: None. FINDINGS: VENTRICLES: No developing hydrocephalus or hemorrhage. CEREBRUM: No masses. No hemorrhage. No midline shift. No evidence for acute infarction. Extensive patchy white matter low density, left greater than right. Most confluent in the left frontal lobe. 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 CEREBELLUM: No masses. No hemorrhage. No alteration of density. No evidence for acute infarction. EXTRAAXIAL SPACES: No fluid collections. No masses. ORBITS AND GLOBE: No intra- or extraconal masses. Normal contour of globe without masses. CALVARIUM: No fracture. PARANASAL SINUSES: No fluid or mucosal thickening. SOFT TISSUES: No mass or hematoma. OTHER: No other significant finding. IMPRESSION: 1. Stable low density changes in the brain consistent with small vessel disease and pre vious infarct. No acute abnormality suggested by CT. EVIDENCE OF ACUTE STROKE: NO. COMMENT: Quality ID # [id number]: Final reports with documentation of one or more dose reduction techniques (e.g., Automated exposure control, adjustment of the mA and/or kV according to patient size, use of iterative reconstruction technique) TECHNICAL DOCUMENTATION: JOB ID: [id number] [employer]- All Rights Reserved
[2017-01-18] MEDS: CLONIDINE HCL 0.1 MG TABLET PO SCH ×2 (09:22→21:04)
[2017-01-18] MEDS: ASPIRIN 81 MG TABLET, CHEWABLE PO SCH (09:22)
[2017-01-18 09:54] LABS: ABSOLUTE BASOPHILS # (AUTO) 0.1 10^3/uL (0.0-0.2); ABSOLUTE EOSINOPHILS # (AUTO) 0.1 10^3/uL (0.0-0.6); ABSOLUTE LYMPHOCYTES (AUTO) 1.2 10^3/uL (0.5-4.7); ABSOLUTE MONOCYTES (AUTO) 0.6 10^3/uL (0.1-1.4); ABSOLUTE NEUT (AUTO) 5.9 10^3/uL (1.7-8.2); BASOPHILS % (AUTO) 1.1 % (0-2); EOSINOPHILS % (AUTO) 0.9 % (0-6); HEMATOCRIT 41.8 % (37.9-51.0); HEMOGLOBIN 14.3 g/dL (13.5-17.0); HGB HCT DIFFERENCE 1.1; LYMPHOCYTES % (AUTO) 15.6 % (13-45); MEAN CORPUSCULAR HGB CONC 34.3 g/dL (32.0-36.0); MEAN CORPUSCULAR VOLUME 93 fl (80-97); MONOCYTES % (AUTO) 8.2 % (3-13); RED BLOOD COUNT 4.48 10^6/uL (4.35-5.55); RED CELL DISTRIBUTION WIDTH 17.4 % (11.5-14.0); SEGMENTED NEUTROPHILS % (AUTO) 74.2 % (42-78); WHITE BLOOD COUNT 7.9 10^3/uL (4.0-10.5)
[2017-01-18] MEDS ORDERED: ALBUTEROL SULFATE HFA (90 MCG/PUFF) 8 GM MDI (1 MDI/ER DISP) IH PRN (11:24)
[2017-01-18] MEDS ORDERED: TRAMADOL HCL 50 MG TABLET PO PRN (11:24)
[2017-01-18] MEDS ORDERED: ALBUTEROL SULFATE HFA (90 MCG/PUFF) 200 PUFF/8.5 GM MDI IH PRN (12:20)
[2017-01-18 14:41] LABS: PROTHROMBIN TIME 22.9 SEC (11.4-15.4)
[2017-01-18 14:55] LABS: ANION GAP 12 (5-19); BLOOD UREA NITROGEN 15 mg/dL (7-20); CALCIUM 9.5 mg/dL (8.4-10.2); CARBON DIOXIDE 25 mmol/L (22-30); CHLORIDE 107 mmol/L (98-107); CREATININE RESULT 1.01 mg/dL (0.52-1.25); GLUCOSE 108 mg/dL (75-110); POTASSIUM 3.8 mmol/L (3.6-5.0); SODIUM 144.3 mmol/L (137-145)
--- NOTE | 2017-01-18 16:54 | PDOC PROGRESS REPORT ---
Subjective Progress Note for:: 01/18/17 Subjective:: The patient is resting in his bed. He has had a headache this morning and his blood pressures been uncontrolled. He has been started back on all of his home medications At this point and this afternoon he is feeling a little bit better. Unfortunately his INR is only 1.9. We discussed staying in the hospital an additional night to see if we can get his INR close to goal. He states that he has given himself Lovenox injections in the past and we could potentially send him out on Lovenox if his INR is not therapeutic tomorrow. We discussed staying in the hospital today to get his blood pressure under better control and he is agreeable. Other than the headache he states that he is feeling somewhat better. He still is having difficulty finding words which is quite frustrating to him. He has had no chest pains, shortness of breath or heart palpitations. No nausea, vomiting or diarrhea. He is tolerating his diet. No urinary complaints. He states he urinary frequency was having yesterday has resolved and he thinks it was because of the IV fluids. Reason For Visit: TIA,CONCERN FOR CVA,SUBTHERAPEUTIC INR Physical Exam Vital Signs: Temp Pulse Resp BP Pulse Ox 98.7 F 70 19 144/78 H 93 01/18/17 15:00 01/18/17 16:00 01/18/17 16:00 01/18/17 16:00 01/18/17 16:00 Intake & Output 01/17/17 01/18/17 01/19/17 06:59 06:59 06:59 Intake Total 746 0 Output Total 2054 Balance -1308 0 Weight 89.2 kg General appearance: PRESENT: no acute distress, well-developed, well-nourished Head exam: PRESENT: atraumatic, normocephalic Ear exam: PRESENT: normal external ear exam Mouth exam: PRESENT: moist, tongue midline Neck exam: ABSENT: carotid bruit, JVD, lymphadenopathy, thyromegaly Respiratory exam: PRESENT: clear to auscultation irineo. ABSENT: rales, rhonchi, wheezes Cardiovascular exam: PRESENT: RRR. ABSENT: diastolic murmur, rubs, systolic murmur GI/Abdominal exam: PRESENT: normal bowel sounds, soft. ABSENT: distended, guarding, mass, organolmegaly, rebound, tenderness Rectal exam: PRESENT: deferred Extremities exam: PRESENT: full ROM. ABSENT: calf tenderness, clubbing, pedal edema Neurological exam: PRESENT: other - The patient continues to have difficulty finding words and some mild aphasia Psychiatric exam: PRESENT: appropriate affect, normal mood. ABSENT: homicidal ideation, suicidal ideation Skin exam: PRESENT: dry, intact, warm. ABSENT: cyanosis, rash Results Laboratory Results: 01/18/17 09:12 01/18/17 13:38 01/18/17 01/18/17 01/18/17 04:48 04:48 09:12 WBC 7.9 7.9 RBC 4.66 4.48 Hgb 14.9 D 14.3 Hct 43.1 41.8 MCV 93 93 MCH 31.9 32.0 MCHC 34.5 34.3 RDW 17.2 H 17.4 H Plt Count 161 171 Seg Neutrophils % 74.2 Lymphocytes % 15.6 Monocytes % 8.2 Eosinophils % 0.9 Basophils % 1.1 Absolute Neutrophils 5.9 Absolute Lymphocytes 1.2 Absolute Monocytes 0.6 Absolute Eosinophils 0.1 Absolute Basophils 0.1 Sodium 147.3 H Potassium 4.3 Chloride 108 H Carbon Dioxide 22 Anion Gap 17 BUN 15 Creatinine 1.03 Est GFR ( Amer) > 60 Est GFR (Non-Af Amer) > 60 Glucose 138 H Calcium 10.3 H Magnesium 1.5 L 01/18/17 13:38 WBC RBC Hgb Hct MCV MCH MCHC RDW Plt Count Seg Neutrophils % Lymphocytes % Monocytes % Eosinophils % Basophils % Absolute Neutrophils Absolute Lymphocytes Absolute Monocytes Absolute Eosinophils Absolute Basophils Sodium 144.3 Potassium 3.8 Chloride 107 Carbon Dioxide 25 Anion Gap 12 BUN 15 Creatinine 1.01 Est GFR ( Amer) > 60 Est GFR (Non-Af Amer) > 60 Glucose 108 Calcium 9.5 Magnesium 01/16/17 01/17/17 01/17/17 20:26 02:14 07:00 Troponin I 0.027 0.023 0.023 Impressions: Chest X-Ray 01/16/17 13:44 IMPRESSION: Cardiomegaly. No acute findings. Carotid Doppler Study 01/17/17 09:00 IMPRESSION: NO HEMODYNAMICALLY SIGNIFICANT STENOSIS. Head CT 01/18/17 00:00 IMPRESSION: 1. Stable low density changes in the brain consistent with small vessel disease and previous infarct. No acute abnormality suggested by CT. EVIDENCE OF ACUTE STROKE: NO. Assessment & Plan - Diagnosis (1) CVA (cerebral vascular accident) Is this a current diagnosis for this admission?: Yes Plan: The patient had a repeat CT scan today which does reveal evidence of a CVA. It is not clear whether it is an acute CVA or not. In any event the patient continues to have aphasia. This was likely an embolic event from his atrial fibrillation as well as his [employer]'s mechanical valve. His INR was quite subtherapeutic when he came to the hospital. He has been started on an 81 mg aspirin. He will continue with statin medication. Overall other than the difficulty finding words and the mild aphasia he does not seem to have any other deficits. (2) Subtherapeutic international normalized ratio (INR) Is this a current diagnosis for this admission?: Yes Plan: Continue Coumadin and a Lovenox bridge. Unfortunately his INR is only 1.9 today. We are going to give him 7.5 mg of Coumadin tonight and resume his 5 mg daily tomorrow. An INR will be drawn in the morning. (3) [facility] [employer] Valve Is this a current diagnosis for this admission?: Yes Plan: The patient's INR remains subtherapeutic. He will continue with Lovenox and Coumadin for now. (4) Atrial fibrillation Qualifiers: Atrial fibrillation type: chronic Qualified Code(s): I48.2 - Chronic atrial fibrillation Is this a current diagnosis for this admission?: Yes Plan: Continue Coumadin and Lovenox. He is rate controlled at this point. (5) CAD (coronary artery disease) Qualifiers: Coronary Disease-Associated Artery/Lesion type: bypass graft Is this a current diagnosis for this admission?: Yes Plan: Continue home regimen (6) Hypertension Qualifiers: Hypertension type: essential hypertension Qualified Code(s): I10 - Essential (primary) hypertension Is this a current diagnosis for this admission?: Yes Plan: Blood pressures were uncontrolled this morning. He has now been started back on all of his home medications with some improvement. Will monitor his blood pressure overnight. (7) Tobacco dependence Is this a current diagnosis for this admission?: Yes Plan: Certainly would be in his best interest to quit smoking (8) Anemia Plan: Secondary to chronic disease. Stable (9) Hypernatremia Plan: Resolved (10) Anxiety Plan: He will continue as needed Ativan here in the hospital. (11) Urinary frequency Plan: UA was negative at the time of admission. He was bladder scan today and had very small residual. He feels as if this was due to his IV fluids which have since been stopped. - Time Time Spent with patient: 25-34 minutes - Inpatient Certification Medical Necessity: Other - Inpatient hospitalization remains necessary. The patient has had uncontrolled blood pressures today and his INR is still subtherapeutic. If his blood pressure is well controlled tomorrow and his INR remained subtherapeutic would consider sending him out with a Lovenox bridge.
[2017-01-18] MEDS: ACETAMINOPHEN 325 MG TABLET PO PRN (20:14)
[2017-01-18] MEDS: LISINOPRIL 10 MG TABLET PO SCH (21:03)
[2017-01-18] MEDS: PREGABALIN 100 MG CAPSULE PO SCH (21:04)
[2017-01-18] MEDS: WARFARIN SODIUM 5 MG TABLET PO SCH (21:05)
[2017-01-18] MEDS: SIMVASTATIN 40 MG TABLET PO SCH (21:06)
[2017-01-18] MEDS ORDERED: TRAZODONE HCL 50 MG TABLET PO SCH ×2 (22:00)
[2017-01-18] MEDS ORDERED: WARFARIN SODIUM 2.5 MG TABLET PO SCH (22:00)
[2017-01-18] MEDS ORDERED: (PENDING PHARMACY ID) (Lisinopril [Prinivil 30 Mg Tablet] 30 MG) PO SCH (22:00)
[2017-01-19] MEDS: ENOXAPARIN SODIUM INJ 100 MG/1 ML DISP.SYRIN SUBCUT SCH (05:22)
[2017-01-19] MEDS: DILTIAZEM HCL 60 MG TABLET PO SCH (05:22)
[2017-01-19 06:06] LABS: PROTHROMBIN TIME 25.3 SEC (11.4-15.4)
[2017-01-19 06:12] LABS: ANION GAP 9 (5-19); BLOOD UREA NITROGEN 16 mg/dL (7-20); CALCIUM 9.7 mg/dL (8.4-10.2); CARBON DIOXIDE 29 mmol/L (22-30); CHLORIDE 107 mmol/L (98-107); CREATININE RESULT 1.13 mg/dL (0.52-1.25); GLUCOSE 122 mg/dL (75-110); MAGNESIUM 1.5 mg/dL (1.6-2.3); POTASSIUM 4.3 mmol/L (3.6-5.0); SODIUM 145.1 mmol/L (137-145)
[2017-01-19] MEDS: LISINOPRIL 10 MG TABLET PO SCH (09:15)
[2017-01-19] MEDS: PREGABALIN 100 MG CAPSULE PO SCH (09:15)
[2017-01-19] MEDS: ASPIRIN 81 MG TABLET, CHEWABLE PO SCH (09:16)
[2017-01-19] MEDS: CLONIDINE HCL 0.1 MG TABLET PO SCH (09:16)
[2017-01-19 09:49] LABS: PROTHROMBIN TIME 27.3 SEC (11.4-15.4)
[2017-01-19] MEDS ORDERED: LANSOPRAZOLE 30 MG TAB.RAP.DR PO SCH (10:00)
[2017-01-19] MEDS ORDERED: (PENDING PHARMACY ID) (Vitamin B Complex [Super B Complex] 1 CAP) PO SCH (10:00)
[2017-01-19] MEDS ORDERED: MULTIVIT-STRESS FORMULA/ZINC TABLET PO SCH (10:00)
[2017-01-19 11:19] LABS: APPEARANCE,URINE CLEAR; BILIRUBIN,URINE NEGATIVE (NEGATIVE); GLUCOSE, URINE NEGATIVE (NEGATIVE); KETONES,URINE NEGATIVE (NEGATIVE); LEUKOCYTE ESTERASE,URINE NEGATIVE (NEGATIVE); NITRITE,URINE NEGATIVE (NEGATIVE); PROTEIN,URINE 30 mg/dL (NEGATIVE); URINE SPECIFIC GRAVITY 1.016
[2017-01-19 13:20] VITALS: BP 127/82
--- NOTE | 2017-01-19 18:26 | PDOC DISCHARGE SUMMARY ---
General - Admit/Disc Date/PCP Admission Date/Primary Care Provider: 01/16/17 17:49 PERLA MARTINEZ PA-C Filament Welder: Dr. Jean Discharge Date: 01/19/17 - Discharge Diagnosis (1) CVA (cerebral vascular accident) Is this a current diagnosis for this admission?: Yes Summary: Clinically on exam the patient has suffered an acute CVA. A CT scan of the brain initially at the time of admission did not reveal any evidence of a CVA. Unfortunately he cannot have an MRI performed. Repeat CT scan revealed evidence of a CVA. It is felt that his CVA was likely embolic due to atrial fibrillation and his [employer]. Conor's mechanical valve. He had a subtherapeutic INR at the time of admission. He has been sent home with Lovenox bridge until his INR is therapeutic. He has been started on an 81 mg aspirin as well as a statin medication. (2) Subtherapeutic international normalized ratio (INR) Is this a current diagnosis for this admission?: Yes Summary: INR is still subtherapeutic at the time of discharge but improving. He has taken Lovenox injections at home in the past. He will be discharged home with a Lovenox bridge until his INR is therapeutic. He will check an INR tomorrow and wait continue Lovenox until he hears from his physician. (3) [employer] Conor Valve Is this a current diagnosis for this admission?: Yes Summary: Plan as for above (4) Atrial fibrillation Is this a current diagnosis for this admission?: Yes Summary: He is on Coumadin for anticoagulation. (5) CAD (coronary artery disease) Is this a current diagnosis for this admission?: Yes Summary: He will resume his home regimen (6) Hypertension Is this a current diagnosis for this admission?: Yes Summary: His medications have been adjusted. He should follow-up with his primary care physician's office next week for blood pressure check. (7) Tobacco dependence Is this a current diagnosis for this admission?: Yes Summary: Certainly it would be in his best interest to quit smoking (8) Anemia Is this a current diagnosis for this admission?: Yes Summary: Stable (9) Hypernatremia Is this a current diagnosis for this admission?: Yes Summary: Improved (10) Anxiety Is this a current diagnosis for this admission?: Yes (11) Urinary frequency Is this a current diagnosis for this admission?: Yes Summary: He had no urinary retention and a UA and urine culture was unremarkable. His urinary frequency was likely due to IV fluids. - Additional Information Resuscitation Status: Full Code Discharge Diet: Cardiac Discharge Activity: Activity As Tolerated, Balance Activity w/Rest, Slowly Increase Activity Home Medications: Albuterol Sulfate [Ventolin HFA MDI 18 GM] 2 puff IH Q4HP PRN 01/16/17 Diltiazem HCl [Cartia Xt] 240 mg PO DAILY 01/16/17 Lisinopril [Prinivil 30 mg Tablet] 30 mg PO Q12 01/16/17 Metformin HCl [Glucophage 500 mg Tablet] 1,000 mg PO BIDBS 01/16/17 Pantoprazole Sodium [Protonix] 40 mg PO DAILY 01/16/17 Pregabalin [Lyrica 100 mg Capsule] 100 mg PO Q12 01/16/17 Tramadol HCl [Ultram 50 mg Tablet] 50 mg PO Q12HP PRN 01/16/17 Trazodone HCl [Desyrel 50 mg Tablet] 50 mg PO QHS 01/16/17 Vitamin B Complex [Super B Complex] 1 cap PO DAILY 01/16/17 Aspirin [Aspirin 81 mg Chewable Tablet] 81 mg PO DAILY #30 tab.chew 01/19/17 Clonidine HCl [Catapres 0.1 mg Tablet] 0.1 mg PO Q12 #0 tablet 01/19/17 Enoxaparin Sodium [Lovenox Inj 100 mg/1 ml Disp.syrin] 90 mg SUBCUT Q12A #14 disp.syrin 01/19/17 Simvastatin [Zocor 40 mg Tablet] 40 mg PO QHS #30 tablet 01/19/17 Warfarin Sodium [Coumadin 5 mg Tablet] 5 mg PO QHS #30 tablet 01/19/17 History of Present Illness Patient complains of: Difficulty speaking History of Present Illness: MIKA NGUYEN is a 71 year old male who presented to the emergency room with difficulties with his speech. Hospital Course Hospital Course: He was brought to the emergency room due to difficulties with speech. They initially were quite severe but then began to improve. The patient was feeling weak so he was brought to the emergency room for further evaluation. In the emergency room he was found to have a subtherapeutic INR of 1.8. He does have a [employer] Conor's mechanical valve as well as underlying atrial fibrillation. His initial CT scan of the brain was negative. He was admitted to the hospital. Carotid Dopplers were unremarkable. At 48 hours the patient had a repeat CT scan of the brain which did reveal evidence of a CVA. He continued to have some mild aphasia. The patient was started on Lovenox. It was felt that this was sufficient to bridge him with. I did discuss this with my attending physician, Khurram Castro who did not feel as if he needed to be placed on a heparin drip. On the day of discharge his INR is close to being therapeutic. Due to his mitral [employer] Conor's mechanical valve a decision was made to send him out with a Lovenox bridge. He has given himself Lovenox injections at home. He will check his INR tomorrow and will await further instructions from his primary care physician. He was started on a low-dose aspirin as well as a statin medication. 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 At this point maximum hospital benefit has been reached. The patient will be discharged home today in stable condition. Physical Exam Vital Signs: Temp Pulse Resp BP Pulse Ox 97.9 F 106 H 18 127/82 H 98 01/19/17 13:18 01/19/17 13:18 01/19/17 13:18 01/19/17 13:18 01/19/17 13:18 Intake & Output 01/18/17 01/19/17 01/20/17 06:59 06:59 06:59 Intake Total 746 850 237 Output Total 2054 100 Balance -1308 850 137 Weight 89.2 kg 83.9 kg General appearance: PRESENT: no acute distress, well-developed, well-nourished Head exam: PRESENT: atraumatic, normocephalic Eye exam: PRESENT: conjunctiva pink, EOMI, PERRLA. ABSENT: scleral icterus Ear exam: PRESENT: normal external ear exam Mouth exam: PRESENT: moist, tongue midline Neck exam: ABSENT: carotid bruit, JVD, lymphadenopathy, thyromegaly Respiratory exam: PRESENT: clear to auscultation irineo. ABSENT: rales, rhonchi, wheezes Cardiovascular exam: PRESENT: RRR. ABSENT: diastolic murmur, rubs, systolic murmur Pulses: PRESENT: normal dorsalis pedis pul Vascular exam: PRESENT: normal capillary refill GI/Abdominal exam: PRESENT: normal bowel sounds, soft. ABSENT: distended, guarding, mass, organolmegaly, rebound, tenderness Rectal exam: PRESENT: deferred Extremities exam: PRESENT: full ROM. ABSENT: calf tenderness - Issue okay, clubbing, pedal edema Neurological exam: PRESENT: alert, awake, oriented to person, oriented to place , oriented to time, oriented to situation, aphasic - The patient continues to have mild aphasia. ABSENT: motor sensory deficit Psychiatric exam: PRESENT: appropriate affect, normal mood. ABSENT: homicidal ideation, suicidal ideation Skin exam: PRESENT: dry, intact, warm. ABSENT: cyanosis, rash Results Laboratory Results: 01/18/17 09:12 01/19/17 05:12 01/19/17 01/19/17 05:12 10:50 Sodium 145.1 H Potassium 4.3 Chloride 107 Carbon Dioxide 29 Anion Gap 9 BUN 16 Creatinine 1.13 Est GFR ( Amer) > 60 Est GFR (Non-Af Amer) > 60 Glucose 122 H Calcium 9.7 Magnesium 1.5 L Urine Color YELLOW Urine Appearance CLEAR Urine pH 6.0 Ur Specific Graham 1.016 Urine Protein 30 H Urine Glucose (UA) NEGATIVE Urine Ketones NEGATIVE Urine Blood MODERATE H Urine Nitrite NEGATIVE Ur Leukocyte Esterase NEGATIVE Urine WBC (Auto) 3 Urine RBC (Auto) 16 01/16/17 01/17/17 01/17/17 20:26 02:14 07:00 Troponin I 0.027 0.023 0.023 Impressions: Chest X-Ray 01/16/17 13:44 IMPRESSION: Cardiomegaly. No acute findings. Carotid Doppler Study 01/17/17 09:00 IMPRESSION: NO HEMODYNAMICALLY SIGNIFICANT STENOSIS. Head CT 01/18/17 00:00 IMPRESSION: 1. Stable low density changes in the brain consistent with small vessel disease and previous infarct. No acute abnormality suggested by CT. EVIDENCE OF ACUTE STROKE: NO. Plan Time Spent: Greater than 30 Minutes
== END 2017-01-19 14:11 | disposition home or self-care (01) | DRG 65 ==
LOC: ER 13:24 → EH 17:49 → 3W 01-17 15:03
PROVIDERS: ADMIT Family Medicine; ATTEND Family Medicine
PROC: 5A09357 Assistance with Respiratory Ventilation, Less than 24 Consecutive Hours, Continuous Positive Airway Pressure (ICD-10-PCS; 2017-01-18)
PROC: 3E0234Z Introduction of Serum, Toxoid and Vaccine into Muscle, Percutaneous Approach (ICD-10-PCS; principal; 2017-01-19)
DX: I63.9 Cerebral infarction, unspecified (principal); E87.0 Hyperosmolality and hypernatremia; I48.2 Chronic atrial fibrillation; F17.210 Nicotine dependence, cigarettes, uncomplicated; R47.01 Aphasia; R79.1 Abnormal coagulation profile; D64.9 Anemia, unspecified; F41.9 Anxiety disorder, unspecified; I10 Essential (primary) hypertension; E11.9 Type 2 diabetes mellitus without complications; I25.10 Atherosclerotic heart disease of native coronary artery without angina pectoris; E66.01 Morbid (severe) obesity due to excess calories; Z95.2 Presence of prosthetic heart valve; Z90.49 Acquired absence of other specified parts of digestive tract; Z82.49 Family history of ischemic heart disease and other diseases of the circulatory system; Z88.0 Allergy status to penicillin; Z68.29 Body mass index [BMI] 29.0-29.9, adult; Z95.1 Presence of aortocoronary bypass graft; Z79.02 Long term (current) use of antithrombotics/antiplatelets; Z79.899 Other long term (current) drug therapy; Z79.84 Long term (current) use of oral hypoglycemic drugs; Z23 Encounter for immunization
CPT/HCPCS: 36415; 70450; 71010; 80048; 80053; 80061; 81001; 83036; 83735; 84439; 84443; 84484; 85025; 85027; 85610; 85730; 90686; 93005; 93010; 93880; 96372; 99285; G8978-GP; G8979-GP; G8980-GP; G8987-GO; G8988-GO; G8989-GO; G8996-GN; G8997-GN; J0360; J1650; J1940; J2060; J3490; J7030; J7120

== ENCOUNTER 2017-03-04 13:32 | Emergency (ER) | payer MEDICARE ==
[2017-03-04 13:53] LABS: ABSOLUTE MONOCYTES (AUTO) 0.6 10^3/uL (0.1-1.4); ABSOLUTE NEUT (AUTO) 9.6 10^3/uL (1.7-8.2); BASOPHILS % (AUTO) 0.3 % (0-2); EOSINOPHILS % (AUTO) 0.2 % (0-6); HEMATOCRIT 38.2 % (37.9-51.0); HEMOGLOBIN 12.8 g/dL (13.5-17.0); MEAN CORPUSCULAR HEMOGLOBIN 32.3 pg (27.0-33.4); MEAN CORPUSCULAR HGB CONC 33.6 g/dL (32.0-36.0); MEAN CORPUSCULAR VOLUME 96 fl (80-97); PLATELET COUNT 277 10^3/uL (150-450); RED BLOOD COUNT 3.98 10^6/uL (4.35-5.55); RED CELL DISTRIBUTION WIDTH 15.3 % (11.5-14.0); SEGMENTED NEUTROPHILS % (AUTO) 85.5 % (42-78); TOTAL CELLS COUNTED % (AUTO) 100 %; WHITE BLOOD COUNT 11.2 10^3/uL (4.0-10.5)
[2017-03-04] MEDS ORDERED: CALCIUM GLUCONATE 1000 MG/10 ML INJ IV ONE ×3 (14:27→16:31)
[2017-03-04] MEDS ORDERED: ALBUTEROL SULFATE 0.083% NEB 2.5 MG/3 ML AMPUL NEB ONE ×3 (14:27→16:29)
[2017-03-04] MEDS ORDERED: SODIUM POLYSTYRENE SULFONATE 15 GM/60 ML PO ONE ×2 (14:28→18:01)
--- NOTE | 2017-03-04 14:28 | RADIOLOGY REPORT (SQ) ---
EXAM DESCRIPTION: CT HEAD WITHOUT COMPLETED DATE/TIME: 03/04/2017 2:16 pm REASON FOR STUDY: mental status change COMPARISON: 01/18/2017 TECHNIQUE: Axial images acquired through the brain without intravenous contrast. Images reviewed wi th bone, brain and subdural windows. Images stored on PACS. All CT scanners at this facility use dose modulation, iterative reconstruction, and/or weight based d osing when appropriate to reduce radiation dose to as low as reasonably achievable (ALARA). [facility]: Dose Right [facility]: CareDose [facility]: Dose Right [facility]: Teradose 4D [facility]: Smart [employer] RADIATION DOSE: CT Rad equipment meets quality standard of care and radiation dose reduction techniq ues were employed. CTDIvol: 64.6 mGy. DLP: 1034 mGy-cm.mGy. LIMITATIONS: None. FINDINGS: VENTRICLES: Prominent. CEREBRUM: No masses. No hemorrhage. No midline shift. Areas of low density in the white matter mos t likely due to chronic micro-vascular ischemic change. Stable chronic infarction left frontal lobe. No evidence for acute infarction. CEREBELLUM: No masses. No hemorrhage. No alteration of density. No evidence for acute infarction. EXTRAAXIAL SPACES: Age-related involutional change. No fluid collections. No masses. ORBITS AND GLOBE: No intra- or extraconal masses. Normal contour of globe without masses. CALVARIUM: No fracture. PARANASAL SINUSES: No fluid or mucosal thickening. SOFT TISSUES: No mass or hematoma. OTHER: No other significant finding. IMPRESSION: NO ACUTE INTRACRANIAL PROCESS. NO SIGNIFICANT CHANGE FROM PRIOR STUDY. EVIDENCE OF ACUTE STROKE: NO. TECHNICAL DOCUMENTATION: JOB ID: [id number] Quality ID # [id number]: Final reports with documentation of one or more dose reduction techniques (e.g., Au tomated exposure control, adjustment of the mA and/or kV according to patient size, use of iterative reconstruction technique) 2010 [employer]- All Rights Reserved
--- NOTE | 2017-03-04 14:29 | ER Document Report ---
ED General - General Chief Complaint: Altered Mental Status Stated Complaint: ALTERED MENTAL STATUS Time Seen by Provider: 03/04/17 14:09 Notes: Brought in by ambulance for evaluation of altered mental status. Patient normally a and O 4. Has mechanical valve. On blood thinners/Coumadin. Recently had a stroke in January. Takes care of himself and daughter checks on him as well. Able to eat and drink and walk and talk without difficulty but over the last several days has increased somnolence. Today seem to be almost unarousable. TRAVEL OUTSIDE OF THE [place] IN LAST 30 DAYS: No - Related Data Allergies/Adverse Reactions: Penicillins Allergy (Verified 03/04/17 13:54) Past Medical History - General Information source: Relative - Social History Smoking Status: Current Every Day Smoker Chew tobacco use (# tins/day): No Frequency of alcohol use: Occasional Drug Abuse: None Lives with: Family Family History: Hypertension Patient has suicidal ideation: No Patient has homicidal ideation: No - Past Medical History Cardiac Medical History: Reports: Hx Coronary Artery Disease, Hx Hypercholesterolemia, Hx Hypertension Neurological Medical History: Reports: Hx Cerebrovascular Accident Endocrine Medical History: Reports: Hx Diabetes Mellitus Type 2 Renal/ Medical History: Denies: Hx Peritoneal Dialysis Past Surgical History: Reports: Hx Appendectomy, Hx Cholecystectomy, Hx Coronary Artery Bypass Graft, Hx Open Heart Surgery - Mitral valve replacement Review of Systems - Review of Systems -: Yes ROS unobtainable due to patient's medical condition Physical Exam - Vital signs Vitals: Pulse Resp BP Pulse Ox 107 H 14 163/83 H 92 03/04/17 13:35 03/04/17 13:35 03/04/17 13:35 03/04/17 13:35 Interpretation: Tachycardic - General In distress: Severe - HEENT Head: Normocephalic, Atraumatic Eyes: Normal Pupils: PERRL Mucous membranes: Dry - Respiratory Respiratory status: No respiratory distress Chest status: Nontender Breath sounds: Normal Chest palpation: Normal - Cardiovascular Rhythm: Tachycardia Heart sounds: Normal auscultation Murmur: No - Abdominal Inspection: Normal Distension: No distension Bowel sounds: Normal Tenderness: Tender, Other - Left lower abdomen tenderness - Back Back: Normal, Nontender - Extremities General upper extremity: Normal inspection, Nontender, Normal color, Normal ROM , Normal temperature General lower extremity: Normal inspection, Nontender, Edema, Normal color, Normal ROM, Normal temperature, Normal weight bearing. No: Demond's sign - Neurological Neuro grossly intact: Yes Cognition: Confused Orientation: Disoriented to person, Disoriented to place, Disoriented to time, Disoriented to events [place] Coma Scale Eye Opening: To Pain [place] Coma Scale Verbal: Confused [place] Coma Scale Motor: Withdraws to Pain [place] Coma Scale Total: 10 Speech: Dysarthria - Skin Skin Temperature: Warm Skin Moisture: Dry Skin Color: Normal Course - Re-evaluation Re-evalutation: 03/04/17 16:49 This is a very confused obtunded individual. CT had initially ordered. No obvious head bleed. CT abdomen and pelvis ordered. Nothing acute. Labs returned which showed hyperkalemia as well as elevated INR at 8. Heart rate continue to increase. Stat treatment performed with insulin, glucose, bicarb, calcium, albuterol. Patient unable to drink Kayexalate. Fluids given. Patient needs immediate transfer as no dialysis ability at this facility at this time. Of note patient is a full code. 03/04/17 16:50 Laboratory 03/04/17 03/04/17 03/04/17 13:40 13:40 13:40 WBC 11.2 H RBC 3.98 L Hgb 12.8 L Hct 38.2 MCV 96 MCH 32.3 MCHC 33.6 RDW 15.3 H Plt Count 277 Seg Neutrophils % 85.5 H Lymphocytes % 9.0 L Monocytes % 5.0 Eosinophils % 0.2 Basophils % 0.3 Absolute Neutrophils 9.6 H Absolute Lymphocytes 1.0 Absolute Monocytes 0.6 Absolute Eosinophils 0.0 Absolute Basophils 0.0 PT Cancelled INR Cancelled APTT Cancelled Sodium Cancelled Potassium Cancelled Chloride Cancelled Carbon Dioxide Cancelled Anion Gap Cancelled BUN Cancelled Creatinine Cancelled Est GFR ( Amer) Cancelled Est GFR (Non-Af Amer) Cancelled Glucose Cancelled Calcium Cancelled Magnesium Cancelled Total Bilirubin Cancelled Direct Bilirubin Cancelled Neonat Total Bilirubin Cancelled Neonat Direct Bilirubin Cancelled Neonat Indirect Bili Cancelled AST Cancelled ALT Cancelled Alkaline Phosphatase Cancelled Ammonia Creatine Kinase CK-MB (CK-2) Troponin I Total Protein Cancelled Albumin Cancelled Serum Alcohol Cancelled 03/04/17 03/04/17 03/04/17 13:40 13:40 14:31 WBC RBC Hgb Hct MCV MCH MCHC RDW Plt Count Seg Neutrophils % Lymphocytes % Monocytes % Eosinophils % Basophils % Absolute Neutrophils Absolute Lymphocytes Absolute Monocytes Absolute Eosinophils Absolute Basophils PT 70.9 H* INR 8.18 H* APTT 70.9 H Sodium Potassium Chloride Carbon Dioxide Anion Gap BUN Creatinine Est GFR ( Amer) Est GFR (Non-Af Amer) Glucose Calcium Magnesium Total Bilirubin Direct Bilirubin Neonat Total Bilirubin Neonat Direct Bilirubin Neonat Indirect Bili AST ALT Alkaline Phosphatase Ammonia Creatine Kinase 899 H CK-MB (CK-2) Cancelled Troponin I Cancelled Total Protein Albumin Serum Alcohol 03/04/17 03/04/17 03/04/17 14:31 14:31 14:56 WBC RBC Hgb Hct MCV MCH MCHC RDW Plt Count Seg Neutrophils % Lymphocytes % Monocytes % Eosinophils % Basophils % Absolute Neutrophils Absolute Lymphocytes Absolute Monocytes Absolute Eosinophils Absolute Basophils PT INR APTT Sodium Cancelled Potassium Cancelled Chloride Cancelled Carbon Dioxide Cancelled Anion Gap Cancelled BUN Cancelled Creatinine Cancelled Est GFR ( Amer) Cancelled Est GFR (Non-Af Amer) Cancelled Glucose Cancelled Calcium Cancelled Magnesium Cancelled Total Bilirubin Cancelled Direct Bilirubin Cancelled Neonat Total Bilirubin Cancelled Neonat Direct Bilirubin Cancelled Neonat Indirect Bili Cancelled AST Cancelled ALT Cancelled Alkaline Phosphatase Cancelled Ammonia 28.5 Creatine Kinase CK-MB (CK-2) Cancelled Troponin I Cancelled Total Protein Cancelled Albumin Cancelled Serum Alcohol Cancelled 03/04/17 03/04/17 15:20 15:20 WBC RBC Hgb Hct MCV MCH MCHC RDW Plt Count Seg Neutrophils % Lymphocytes % Monocytes % Eosinophils % Basophils % Absolute Neutrophils Absolute Lymphocytes Absolute Monocytes Absolute Eosinophils Absolute Basophils PT INR APTT Sodium 144.2 Potassium 8.0 H* Chloride 113 H Carbon Dioxide 18 L Anion Gap 13 BUN 71 H Creatinine 5.75 H Est GFR ( Amer) 12 L Est GFR (Non-Af Amer) 10 L Glucose 151 H Calcium 10.8 H Magnesium 1.4 L Total Bilirubin 0.7 Direct Bilirubin 0.5 H Neonat Total Bilirubin Not Reportable Neonat Direct Bilirubin Not Reportable Neonat Indirect Bili Not Reportable AST 63 H ALT 50 Alkaline Phosphatase 127 H Ammonia Creatine Kinase CK-MB (CK-2) 7.16 H Troponin I 0.075 Total Protein 8.0 Albumin 4.3 Serum Alcohol < 10 Chest X-Ray 03/04/17 13:58 IMPRESSION: NO RETROCARDIAC AIRSPACE OPACITY COULD REPRESENT SUBSEGMENTAL ATELECTASIS, ASPIRATION, OR PNEUMONIA. Head CT 03/04/17 13:58 IMPRESSION: NO ACUTE INTRACRANIAL PROCESS. NO SIGNIFICANT CHANGE FROM PRIOR STUDY. EVIDENCE OF ACUTE STROKE: NO. Abdomen/Pelvis CT 03/04/17 14:27 IMPRESSION: NO ACUTE FINDINGS WITHIN THE ABDOMEN OR PELVIS IDENTIFIED ON THIS NONCONTRAST CT. NONOBSTRUCTING LEFT RENAL CALCULUS. DIVERTICULOSIS. ADDITIONAL CHRONIC CHANGES ABOVE. 03/04/17 17:05 Patient has been accepted at [facility] by Dr. Agee with critical care. Patient also accepted at [facility] by Dr. Marquez. Whoever can take patient first we will send him there. 03/04/17 17:55 Dr. Agee has accepted at [facility]. Awaiting urgent transfer - Vital Signs Vital signs: Temp Pulse Resp BP Pulse Ox 97.7 F 107 H 15 152/67 H 95 03/04/17 17:42 03/04/17 13:35 03/04/17 17:01 03/04/17 17:01 03/04/17 17:01 - Laboratory Result Diagrams: 03/04/17 13:40 03/04/17 17:28 Laboratory results interpreted by me: 03/04/17 03/04/17 03/04/17 13:40 13:40 14:31 WBC 11.2 H RBC 3.98 L Hgb 12.8 L RDW 15.3 H Seg Neutrophils % 85.5 H Lymphocytes % 9.0 L Absolute Neutrophils 9.6 H PT 70.9 H* INR 8.18 H* APTT 70.9 H Potassium Chloride Carbon Dioxide BUN Creatinine Est GFR ( Amer) Est GFR (Non-Af Amer) Glucose Calcium Magnesium Direct Bilirubin AST Alkaline Phosphatase Creatine Kinase 899 H CK-MB (CK-2) 03/04/17 03/04/17 03/04/17 15:20 15:20 17:28 WBC RBC Hgb RDW Seg Neutrophils % Lymphocytes % Absolute Neutrophils PT INR APTT Potassium 8.0 H* 5.8 H D Chloride 113 H Carbon Dioxide 18 L BUN 71 H Creatinine 5.75 H Est GFR ( Amer) 12 L Est GFR (Non-Af Amer) 10 L Glucose 151 H Calcium 10.8 H Magnesium 1.4 L Direct Bilirubin 0.5 H AST 63 H Alkaline Phosphatase 127 H Creatine Kinase CK-MB (CK-2) 7.16 H Critical Care Note - Critical Care Note Total time excluding time spent on procedures (mins): 120 Comments: Renal failure, tachycardia, hyperkalemia, altered mental status, consultation with specialists, fluid management Discharge - Discharge Clinical Impression: Hyperkalemia, Elevated international normalized ratio (INR) Acute renal failure Qualifiers: Acute renal failure type: unspecified Qualified Code(s): N17.9 - Acute kidney failure, unspecified Condition: Critical Referrals: PERLA MARTINEZ PA-C [Primary Care Provider] - Follow up as needed
--- NOTE | 2017-03-04 14:32 | RADIOLOGY REPORT (SQ) ---
EXAM DESCRIPTION: CHEST SINGLE VIEW COMPLETED DATE/TIME: 03/04/2017 2:18 pm REASON FOR STUDY: mental status change COMPARISON: 01/16/2017 EXAM PARAMETERS: NUMBER OF VIEWS: One view. TECHNIQUE: Single frontal radiographic view of the chest acquired. RADIATION DOSE: NA LIMITATIONS: None. FINDINGS: LUNGS AND PLEURA: Retrocardiac airspace opacity. Lungs and pleural spaces otherwise clear . MEDIASTINUM AND HILAR STRUCTURES: No masses. Contour normal. HEART AND VASCULAR STRUCTURES: Heart stable in size. Normal vasculature. BONES: No acute findings. HARDWARE: Stable. OTHER: No other significant finding. IMPRESSION: NO RETROCARDIAC AIRSPACE OPACITY COULD REPRESENT SUBSEGMENTAL ATELECTASIS, ASPIRATION, O R PNEUMONIA. TECHNICAL DOCUMENTATION: JOB ID: [id number] [employer]- All Rights Reserved
--- NOTE | 2017-03-04 14:53 | RADIOLOGY REPORT (SQ) ---
EXAM DESCRIPTION: CT ABD/PELVIS NO ORAL OR IV COMPLETED DATE/TIME: 03/04/2017 2:40 pm REASON FOR STUDY: abd pain, altered COMPARISON: None. TECHNIQUE: CT scan of the abdomen and pelvis performed without intravenous or oral contrast. Images reviewed with lung, soft tissue, and bone windows. Reconstructed coronal and sagittal MPR images revi ewed. All images stored on PACS. All CT scanners at this facility use dose modulation, iterative reconstruction, and/or weight based d osing when appropriate to reduce radiation dose to as low as reasonably achievable (ALARA). [facility]: Dose Right [facility]: CareDose [facility]: Dose Right [facility]: Teradose 4D [facility]: [employer] RADIATION DOSE: CT Rad equipment meets quality standard of care and radiation dose reduction techniq ues were employed. CTDIvol: 14.6 mGy. DLP: 810 mGy-cm.mGy. LIMITATIONS: Patient motion. FINDINGS: LOWER CHEST: Dependent subsegmental atelectasis or scarring. Otherwise clear. Multichamb er cardiomegaly. NON-CONTRASTED LIVER, SPLEEN, ADRENALS: Evaluation limited by lack of IV contrast. No identified sign ificant masses. PANCREAS: No masses. No peripancreatic inflammatory changes. GALLBLADDER: Surgically absent. RIGHT KIDNEY AND URETER: Well circumscribed low density mass(es) statistically most likely to be cyst (s). Assessment limited by lack of iv contrast. No significant calcifications. No hydronephrosis or hydroureter. LEFT KIDNEY AND URETER: Well circumscribed low density mass(es) statistically most likely to be cyst( s). Assessment limited by lack of iv contrast. 4 mm nonobstructing calculus upper pole. No hydron ephrosis or hydroureter. AORTA AND RETROPERITONEUM: Atherosclerotic calcifications. No aneurysm. No retroperitoneal masses or adenopathy. BOWEL AND PERITONEAL CAVITY: Scattered colonic diverticula. No obvious masses or inflammatory change s. No free fluid. APPENDIX: Normal. PELVIS, BLADDER, AND ABDOMINAL WALL:No abnormal masses. No free fluid. Bladder normal. BONES: Degenerative change without fracture or suspicious osseous lesion. OTHER: No other significant finding. IMPRESSION: NO ACUTE FINDINGS WITHIN THE ABDOMEN OR PELVIS IDENTIFIED ON THIS NONCONTRAST CT. NONOBSTRUCTING LEFT RENAL CALCULUS. DIVERTICULOSIS. ADDITIONAL CHRONIC CHANGES ABOVE. COMMENT: Quality ID # [id number]: Final reports with documentation of one or more dose reduction techniques (e.g., Automated exposure control, adjustment of the mA and/or kV according to patient size, use of iterative reconstruction technique) TECHNICAL DOCUMENTATION: JOB ID: [id number] [employer]- All Rights Reserved
[2017-03-04 15:01] LABS: PROTHROMBIN TIME 70.9 SEC (11.4-15.4)
[2017-03-04 15:02] LABS: INTERNATIONAL RATION (INR) 8.18; PARTIAL THROMBOPLASTIN TIME 70.9 SEC (23.5-35.8)
[2017-03-04] MEDS ORDERED: INSULIN REG, HUMAN 100 UNIT/ML 3 ML VIAL (PYX) IV ONE (15:14)
[2017-03-04] MEDS ORDERED: DEXTROSE 50%-WATER 25 GM/50 ML DISP.SYRIN IV ONE (15:14)
[2017-03-04] MEDS ORDERED: PHYTONADIONE INJ 10 MG/1 ML AMPULE IV ONE (15:17)
[2017-03-04 15:52] LABS: ALANINE AMINOTRANSFERASE 50 U/L (21-72); ALBUMIN 4.3 g/dL (3.5-5.0); ALKALINE PHOSPHATASE 127 U/L (38-126); ANION GAP 13 (5-19); ASPARTATE AMINO TRANSFERASE 63 U/L (17-59); BILIRUBIN,DIRECT 0.5 mg/dL (0.0-0.4); BILIRUBIN,TOTAL 0.7 mg/dL (0.2-1.3); BLOOD UREA NITROGEN 71 mg/dL (7-20); CALCIUM 10.8 mg/dL (8.4-10.2); CARBON DIOXIDE 18 mmol/L (22-30); CHLORIDE 113 mmol/L (98-107); GLUCOSE 151 mg/dL (75-110); MAGNESIUM 1.4 mg/dL (1.6-2.3); SODIUM 144.2 mmol/L (137-145)
[2017-03-04 15:54] LABS: ALCOHOL < 10 mg/dL (NONE DETECTED)
[2017-03-04 16:04] LABS: CREATINE KINASE MB 7.16 ng/mL (<4.55)
[2017-03-04 16:06] LABS: TROPONIN I 0.075 ng/mL
[2017-03-04] MEDS ORDERED: CALCIUM CHLORIDE 10% PF/INJ 1000 MG/10 ML SDV IV ONE (16:27)
[2017-03-04] MEDS ORDERED: SODIUM BICARBONATE 4.2% INJ (2.4 MEQ/5 ML) VIAL INJ ONE (16:28)
[2017-03-04] MEDS ORDERED: SODIUM BICARBONATE 8.4% INJ 10 MEQ/10 ML DISP.SYRIN IV ONE (16:29)
[2017-03-04] MEDS: NORMAL SALINE 1000 ML 1,000 ML IV PRN ×2 (16:35→16:38)
[2017-03-04] MEDS ORDERED: SODIUM BICARBONATE 8.4% INJ 50 MEQ/50 ML DISP.SYRIN IV ONE (16:37)
[2017-03-04] MEDS ORDERED: SODIUM BICARBONATE 8.4% INJ 50 MEQ/50 ML DISP.SYRIN ONE (16:37)
[2017-03-04] MEDS ORDERED: SODIUM POLYSTYRENE SULFONATE 15 GM/60 ML PR ONE (17:00)
[2017-03-04 18:23] VITALS: BP 163/90
[2017-03-04 18:25] LABS: AMORPHOUS SEDIMENT,URINE TRACE /HPF; APPEARANCE,URINE CLOUDY; BILIRUBIN,URINE NEGATIVE (NEGATIVE); COLOR,URINE AMBER; GLUCOSE, URINE 50 mg/dL (NEGATIVE); KETONES,URINE NEGATIVE (NEGATIVE); LEUKOCYTE ESTERASE,URINE NEGATIVE (NEGATIVE); NITRITE,URINE NEGATIVE (NEGATIVE); PROTEIN,URINE 100 mg/dL (NEGATIVE); URINE SPECIFIC GRAVITY 1.018; UROBILINOGEN,URINE NEGATIVE mg/dL (<2.0)
[2017-03-04 18:35] LABS: URINE AMPHETAMINES SCREEN NEGATIVE; URINE BARBITURATES SCREEN NEGATIVE; URINE BENZODIAZEPINES SCREEN NEGATIVE; URINE COCAINE SCREEN NEGATIVE; URINE MARIJUANA (THC) SCREEN NEGATIVE; URINE METHADONE SCREEN NEGATIVE; URINE PHENCYCLIDINE SCREEN NEGATIVE
--- NOTE | 2017-03-04 22:19 | EKG REPORT ---
SEVERITY:- ABNORMAL ECG - ATRIAL FIBRILLATION RBBB AND LPFB : Confirmed by: Yuko Stack 04-Mar-2017 22:19:15
== END 2017-03-04 18:37 | disposition short-term general hospital (02) ==
LOC: ER 13:32
DX: N17.9 Acute kidney failure, unspecified (principal); R79.1 Abnormal coagulation profile; R41.82 Altered mental status, unspecified; F17.200 Nicotine dependence, unspecified, uncomplicated; R00.0 Tachycardia, unspecified; E87.5 Hyperkalemia; Z79.01 Long term (current) use of anticoagulants
CPT/HCPCS: 93005; 94640 ×2; 99291; 99292; 96361; 51702; 96375; 96365; 36415; 82553; 82962; 80307 ×2; 82140; 82550; 83735; 84132; 85025; 85610; 85730; 80053; 81001; 84484; 71045; 70450; 74176; 93010; J0610; J3490 ×2; J3430; A9270 ×2; J7030; J1815

== ENCOUNTER 2017-08-07 19:37 | Emergency (ER) | payer MEDICARE ==
[2017-08-07 20:13] VITALS: BP 166/98
[2017-08-07 20:19] LABS: ABSOLUTE BASOPHILS # (AUTO) 0.1 10^3/uL (0.0-0.2); ABSOLUTE EOSINOPHILS # (AUTO) 0.3 10^3/uL (0.0-0.6); ABSOLUTE LYMPHOCYTES (AUTO) 1.4 10^3/uL (0.5-4.7); ABSOLUTE MONOCYTES (AUTO) 0.5 10^3/uL (0.1-1.4); ABSOLUTE NEUT (AUTO) 4.3 10^3/uL (1.7-8.2); BASOPHILS % (AUTO) 1.2 % (0-2); EOSINOPHILS % (AUTO) 3.8 % (0-6); HEMATOCRIT 42.1 % (37.9-51.0); LYMPHOCYTES % (AUTO) 21.3 % (13-45); MEAN CORPUSCULAR HEMOGLOBIN 30.2 pg (27.0-33.4); MEAN CORPUSCULAR HGB CONC 33.2 g/dL (32.0-36.0); MEAN CORPUSCULAR VOLUME 91 fl (80-97); MONOCYTES % (AUTO) 7.5 % (3-13); PLATELET COUNT 255 10^3/uL (150-450); RED BLOOD COUNT 4.62 10^6/uL (4.35-5.55); RED CELL DISTRIBUTION WIDTH 16.4 % (11.5-14.0); SEGMENTED NEUTROPHILS % (AUTO) 66.2 % (42-78); TOTAL CELLS COUNTED % (AUTO) 100 %; WHITE BLOOD COUNT 6.5 10^3/uL (4.0-10.5)
[2017-08-07 20:25] LABS: APPEARANCE,URINE SLIGHTLY-CLOUDY; BILIRUBIN,URINE NEGATIVE (NEGATIVE); COLOR,URINE AMBER; GLUCOSE, URINE NEGATIVE (NEGATIVE); KETONES,URINE TRACE mg/dL (NEGATIVE); LEUKOCYTE ESTERASE,URINE NEGATIVE (NEGATIVE); NITRITE,URINE NEGATIVE (NEGATIVE); PROTEIN,URINE >=500 mg/dL (NEGATIVE); URINE SPECIFIC GRAVITY 1.024
[2017-08-07 20:39] LABS: ALANINE AMINOTRANSFERASE 23 U/L (21-72); ALBUMIN 4.7 g/dL (3.5-5.0); ALKALINE PHOSPHATASE 89 U/L (38-126); ANION GAP 14 (5-19); ASPARTATE AMINO TRANSFERASE 33 U/L (17-59); BILIRUBIN,DIRECT 0.4 mg/dL (0.0-0.4); BILIRUBIN,TOTAL 1.1 mg/dL (0.2-1.3); BLOOD UREA NITROGEN 22 mg/dL (7-20); CARBON DIOXIDE 28 mmol/L (22-30); CHLORIDE 106 mmol/L (98-107); GLUCOSE 130 mg/dL (75-110); LIPASE 157.9 U/L (23-300); POTASSIUM 4.4 mmol/L (3.6-5.0); SODIUM 148.2 mmol/L (137-145); TOTAL PROTEIN 8.3 g/dL (6.3-8.2)
== END 2017-08-07 21:40 | disposition left against medical advice (07) ==
LOC: ER 19:37
DX: Z53.21 Procedure and treatment not carried out due to patient leaving prior to being seen by health care provider (principal)
CPT/HCPCS: 36415; 80053; 81001; 83690; 85025